=== PATIENT | male | born 1945 | race Caucasian/White ===

== ENCOUNTER 2016-04-06 13:18 | Outpatient (CLI) | payer MEDICARE | END 2016-04-06 13:19 | disposition home or self-care (01) | DX: E11.65 Type 2 diabetes mellitus with hyperglycemia (principal) ==

== ENCOUNTER 2016-04-26 13:05 | Outpatient (CLI) | payer MEDICARE | END 2016-04-26 13:06 | disposition home or self-care (01) | DX: N50.0 Atrophy of testis (principal); N43.2 Other hydrocele; N50.89 Other specified disorders of the male genital organs ==

== ENCOUNTER 2016-08-03 14:42 | Outpatient (CLI) | payer MEDICARE | END 2016-08-03 14:43 | disposition home or self-care (01) | DX: R26.9 Unspecified abnormalities of gait and mobility (principal); N40.1 Benign prostatic hyperplasia with lower urinary tract symptoms; E78.5 Hyperlipidemia, unspecified; E11.65 Type 2 diabetes mellitus with hyperglycemia; I10 Essential (primary) hypertension ==

== ENCOUNTER 2016-11-02 14:10 | Outpatient (CLI) | payer MEDICARE ==
[2016-11-02 18:06] LABS: HEMOGLOBIN A1C 2.02 g/dL
== END 2016-11-02 14:11 | disposition home or self-care (01) ==
LOC: LAB.F 14:10
PROVIDERS: ATTEND Internal Medicine
DX: E11.40 Type 2 diabetes mellitus with diabetic neuropathy, unspecified (principal)
CPT/HCPCS: 36415; 83036

== ENCOUNTER 2016-12-08 12:49 | Outpatient (CLI) | payer MEDICARE ==
[2016-12-08 18:31] LABS: HEMOGLOBIN A1C 2.23 g/dL
== END 2016-12-08 12:50 | disposition home or self-care (01) ==
LOC: LAB.F 12:49
PROVIDERS: ATTEND Internal Medicine
DX: R26.9 Unspecified abnormalities of gait and mobility (principal); N40.1 Benign prostatic hyperplasia with lower urinary tract symptoms; E78.5 Hyperlipidemia, unspecified; E11.65 Type 2 diabetes mellitus with hyperglycemia; I10 Essential (primary) hypertension
CPT/HCPCS: 36415; 83036

== ENCOUNTER 2017-01-12 07:10 | Outpatient (CLI) | payer MEDICARE ==
[2017-01-12 12:37] LABS: BUN - BLOOD UREA NITROGEN 20 mg/dL (6-20); CALCIUM 8.6 mg/dL (8.5-10.3); CARBON DIOXIDE - CO2 19 mmol/L (21-32); CHLORIDE 104 mmol/L (101-111); CHOL/HDL RATIO 7.7 (<5.0); CHOLESTEROL 162 mg/dL; CREATININE 0.9 mg/dL (0.6-1.2); GFR - MDRD 84 (>89); GLUCOSE 380 mg/dL (70-100); HDL CHOLESTEROL 21 mg/dL; POTASSIUM 4.1 mmol/L (3.5-5.0); SODIUM 134 mmol/L (135-145); TRIGLYCERIDES 569 mg/dL
[2017-01-12 12:57] LABS: HEMOGLOBIN A1C 1.92 g/dL
[2017-01-12 13:26] LABS: LDL CHOLESTEROL,DIRECT 58 mg/dL
== END 2017-01-12 07:11 | disposition home or self-care (01) ==
LOC: LAB.F 07:10
PROVIDERS: ATTEND Internal Medicine
DX: R26.9 Unspecified abnormalities of gait and mobility (principal); N40.1 Benign prostatic hyperplasia with lower urinary tract symptoms; E78.5 Hyperlipidemia, unspecified; E11.65 Type 2 diabetes mellitus with hyperglycemia; I10 Essential (primary) hypertension
CPT/HCPCS: 36415; 80048; 80061; 82043; 82570; 83036

== ENCOUNTER 2017-02-22 08:00 | Outpatient (CLI) | payer MEDICARE ==
[2017-02-22 18:12] LABS: HEMOGLOBIN A1C 1.99 g/dL
== END 2017-02-22 08:01 | disposition home or self-care (01) ==
LOC: LAB.F 08:00
PROVIDERS: ATTEND Internal Medicine
DX: Z00.00 Encounter for general adult medical examination without abnormal findings (principal); R26.9 Unspecified abnormalities of gait and mobility; N40.1 Benign prostatic hyperplasia with lower urinary tract symptoms; E78.5 Hyperlipidemia, unspecified; E11.65 Type 2 diabetes mellitus with hyperglycemia; I10 Essential (primary) hypertension; Z11.59 Encounter for screening for other viral diseases
CPT/HCPCS: 36415; 83036; 86803

== ENCOUNTER 2017-04-13 13:19 | Outpatient (CLI) | payer MEDICARE ==
[2017-04-13 18:11] LABS: HB2 TOTAL 16.5 g/dL; HEMOGLOBIN A1C 1.85 g/dL; HEMOGLOBIN A1C % 12.4 % (4.6-6.2)
== END 2017-04-13 13:20 | disposition home or self-care (01) ==
LOC: LAB.F 13:19
PROVIDERS: ATTEND Internal Medicine
DX: R26.9 Unspecified abnormalities of gait and mobility (principal); N40.1 Benign prostatic hyperplasia with lower urinary tract symptoms; E78.5 Hyperlipidemia, unspecified; R25.1 Tremor, unspecified; E11.65 Type 2 diabetes mellitus with hyperglycemia; I10 Essential (primary) hypertension
CPT/HCPCS: 36415; 83036

== ENCOUNTER 2017-08-22 14:21 | Outpatient (CLI) | payer MEDICARE ==
[2017-08-22 20:03] LABS: HB2 TOTAL 17.4 g/dL; HEMOGLOBIN A1C 2.36 g/dL; HEMOGLOBIN A1C % 14.6 % (4.6-6.2)
== END 2017-08-22 14:22 | disposition home or self-care (01) ==
LOC: LAB.F 14:21
PROVIDERS: ATTEND Internal Medicine
DX: E78.5 Hyperlipidemia, unspecified (principal); E11.65 Type 2 diabetes mellitus with hyperglycemia; I10 Essential (primary) hypertension
CPT/HCPCS: 36415; 83036

== ENCOUNTER 2017-10-11 08:59 | Outpatient (CLI) | payer MEDICARE ==
[2017-10-11 17:59] LABS: HB2 TOTAL 16.1 g/dL; HEMOGLOBIN A1C 1.91 g/dL
== END 2017-10-11 09:00 | disposition home or self-care (01) ==
LOC: LAB.F 08:59
PROVIDERS: ATTEND Internal Medicine
DX: E78.5 Hyperlipidemia, unspecified (principal); E11.65 Type 2 diabetes mellitus with hyperglycemia; I10 Essential (primary) hypertension
CPT/HCPCS: 36415; 83036

== ENCOUNTER 2017-10-13 14:14 | Outpatient (CLI) | payer MEDICARE | END 2017-10-13 14:15 | disposition home or self-care (01) | LOC: LAB.F 14:14 | PROVIDERS: ATTEND Internal Medicine | DX: R26.9 Unspecified abnormalities of gait and mobility (principal); E78.5 Hyperlipidemia, unspecified; E11.65 Type 2 diabetes mellitus with hyperglycemia; I10 Essential (primary) hypertension; R35.0 Frequency of micturition | CPT/HCPCS: 81003; 87086 ==

== ENCOUNTER 2017-10-14 13:13 | Outpatient (CLI) | payer MEDICARE ==
[2017-10-14 17:35] LABS: BILIRUBIN,URINE NEGATIVE (NEGATIVE); GLUCOSE, URINE (UA) >=1000 mg/dL (NEGATIVE); KETONES,URINE (UA) 15 mg/dL (NEGATIVE); LEUKOCYTE ESTERASE, URINE NEGATIVE (NEGATIVE); NITRITE,URINE NEGATIVE (NEGATIVE); OCCULT BLOOD,URINE NEGATIVE (NEGATIVE); PH,URINE 5.5 PH (5.0-7.5); PROTEIN,URINE NEGATIVE (NEGATIVE); UROBILINOGEN,URINE 1 (NORMAL) E.U./dL (NORMAL)
[2017-10-14 17:37] LABS: CLARITY,URINE CLEAR (CLEAR)
== END 2017-10-14 13:14 | disposition home or self-care (01) ==
LOC: LAB.R 13:13
PROVIDERS: ATTEND Internal Medicine
DX: R26.9 Unspecified abnormalities of gait and mobility (principal); E78.5 Hyperlipidemia, unspecified; E11.65 Type 2 diabetes mellitus with hyperglycemia; I10 Essential (primary) hypertension; R35.0 Frequency of micturition
CPT/HCPCS: 81001; 81003; 87086

== ENCOUNTER 2017-12-27 08:40 | Outpatient (CLI) | payer MEDICARE ==
[2017-12-27 11:00] LABS: CREATININE,URINE 88.3 mg/dL; MICROALBUM/CREATININE RATIO,UR 20.4 ug/mg (<30.0); MICROALBUMIN,URINE 1.8 mg/dL (0-300.0)
[2017-12-27 11:02] LABS: BILIRUBIN,URINE NEGATIVE (NEGATIVE); GLUCOSE, URINE (UA) >=1000 mg/dL (NEGATIVE); KETONES,URINE (UA) NEGATIVE (NEGATIVE); LEUKOCYTE ESTERASE, URINE NEGATIVE (NEGATIVE); NITRITE,URINE NEGATIVE (NEGATIVE); OCCULT BLOOD,URINE NEGATIVE (NEGATIVE); PROTEIN,URINE NEGATIVE (NEGATIVE); UROBILINOGEN,URINE 0.2 (NORMAL) E.U./dL (NORMAL)
[2017-12-27 11:08] LABS: CLARITY,URINE CLEAR (CLEAR)
[2017-12-27 11:15] LABS: BUN - BLOOD UREA NITROGEN 30 mg/dL (6-20); CARBON DIOXIDE - CO2 23 mmol/L (21-32); CHLORIDE 106 mmol/L (101-111); CHOL/HDL RATIO 4.1 (<5.0); CHOLESTEROL 182 mg/dL; CREATININE 0.8 mg/dL (0.6-1.2); GFR - MDRD 96 (>89); GLUCOSE 304 mg/dL (70-100); HDL CHOLESTEROL 44 mg/dL; LDL CHOLESTEROL,CALCULATED 102 mg/dL; LDL/HDL RATIO 2.3 (<3.6); SODIUM 137 mmol/L (135-145); VLDL CHOLESTEROL 36 mg/dL
[2017-12-27 11:18] LABS: HB2 TOTAL 15.8 g/dL; HEMOGLOBIN A1C 1.19 g/dL
== END 2017-12-27 08:41 | disposition home or self-care (01) ==
LOC: LAB.F 08:40
PROVIDERS: ATTEND Internal Medicine
DX: R26.9 Unspecified abnormalities of gait and mobility (principal); E78.5 Hyperlipidemia, unspecified; E11.65 Type 2 diabetes mellitus with hyperglycemia; I10 Essential (primary) hypertension; R35.0 Frequency of micturition
CPT/HCPCS: 36415; 80048; 80061; 81001; 81003; 82043; 82570; 83036; 83721; 87086

== ENCOUNTER 2018-04-04 08:00 | Outpatient (CLI) | payer MEDICARE ==
[2018-04-04 17:38] LABS: HB2 TOTAL 17.2 g/dL; HEMOGLOBIN A1C 1.22 g/dL; HEMOGLOBIN A1C % 8.6 % (4.6-6.2)
== END 2018-04-04 23:59 | disposition home or self-care (01) ==
LOC: LAB.F 08:00
PROVIDERS: ATTEND Internal Medicine
DX: E11.65 Type 2 diabetes mellitus with hyperglycemia (principal)
CPT/HCPCS: 36415; 83036

== ENCOUNTER 2018-04-22 08:11 | Outpatient (CLI) | payer MEDICARE | END 2018-04-22 08:12 | disposition EMS.NT | LOC: EMS 08:11 | PROVIDERS: ATTEND Surgery | DX: R41.0 Disorientation, unspecified (principal); R53.1 Weakness; W18.30XA Fall on same level, unspecified, initial encounter; Y92.039 Unspecified place in apartment as the place of occurrence of the external cause; Z86.73 Personal history of transient ischemic attack (TIA), and cerebral infarction without residual deficits ==

== ENCOUNTER 2018-07-20 13:42 | Outpatient (CLI) | payer MEDICARE ==
[2018-07-20 17:33] LABS: HB2 TOTAL 17.3 g/dL; HEMOGLOBIN A1C 1.27 g/dL; HEMOGLOBIN A1C % 8.9 % (4.6-6.2)
== END 2018-07-20 13:43 | disposition home or self-care (01) ==
LOC: LAB.F 13:42
PROVIDERS: ATTEND Internal Medicine
DX: E78.5 Hyperlipidemia, unspecified (principal); L44.8 Other specified papulosquamous disorders; I10 Essential (primary) hypertension; E11.8 Type 2 diabetes mellitus with unspecified complications
CPT/HCPCS: 36415; 83036

== ENCOUNTER 2018-11-08 15:56 | Outpatient (CLI) | payer MEDICARE ==
[2018-11-08 18:28] LABS: HB2 TOTAL 15.1 g/dL; HEMOGLOBIN A1C 1.83 g/dL; HEMOGLOBIN A1C % 13.2 % (4.6-6.2)
== END 2018-11-08 15:57 | disposition home or self-care (01) ==
LOC: LAB.S 15:56
PROVIDERS: ATTEND Internal Medicine
DX: E78.5 Hyperlipidemia, unspecified (principal); L44.8 Other specified papulosquamous disorders; E11.65 Type 2 diabetes mellitus with hyperglycemia; I10 Essential (primary) hypertension
CPT/HCPCS: 36415; 83036

== ENCOUNTER 2018-12-25 14:37 | Outpatient (CLI) | payer MEDICARE ==
[2018-12-25 18:06] LABS: CREATININE,URINE 65.1 mg/dL; MICROALBUM/CREATININE RATIO,UR 52.2 ug/mg (<30.0); MICROALBUMIN,URINE 3.4 mg/dL (0-300.0)
[2018-12-25 18:08] LABS: BUN - BLOOD UREA NITROGEN 19 mg/dL (6-20); CALCIUM 8.9 mg/dL (8.5-10.3); CARBON DIOXIDE - CO2 24 mmol/L (21-32); CHLORIDE 100 mmol/L (101-111); CHOLESTEROL 185 mg/dL; CREATININE 1.1 mg/dL (0.6-1.2); GFR - MDRD 66 (>89); GLUCOSE 464 mg/dL (70-100); HDL CHOLESTEROL 31 mg/dL; LDL CHOLESTEROL,CALCULATED 102 mg/dL; LDL/HDL RATIO 3.3 (<3.6); SODIUM 135 mmol/L (135-145); VLDL CHOLESTEROL 52 mg/dL
[2018-12-25 19:35] LABS: HB2 TOTAL 14.8 g/dL; HEMOGLOBIN A1C 1.76 g/dL
== END 2018-12-25 14:38 | disposition home or self-care (01) ==
LOC: LAB.S 14:37
PROVIDERS: ATTEND Internal Medicine
DX: Z00.00 Encounter for general adult medical examination without abnormal findings (principal); E78.5 Hyperlipidemia, unspecified; L44.8 Other specified papulosquamous disorders; I10 Essential (primary) hypertension; R26.81 Unsteadiness on feet; E11.8 Type 2 diabetes mellitus with unspecified complications
CPT/HCPCS: 36415; 80048; 80061; 82043; 82570; 83036; 83721

== ENCOUNTER 2019-03-01 12:28 | Outpatient (CLI) | payer MEDICARE | END 2019-03-01 12:29 | disposition critical access hospital (66) | LOC: EMS 12:28 | PROVIDERS: ATTEND Surgery | DX: R53.1 Weakness (principal); R05 Cough; M79.89 Other specified soft tissue disorders; R26.2 Difficulty in walking, not elsewhere classified | CPT/HCPCS: A0425; A0429 ==

== ENCOUNTER 2019-03-01 13:05 | Emergency (ER) | payer MEDICARE ==
[2019-03-01] MEDS ORDERED: VANCOMYCIN INJ 2 GM in SODIUM CHLORIDE 0.9% 500 ML IV STA (13:12)
[2019-03-01] MEDS ORDERED: PIPERACILLIN/TAZOBACTAM 3.375 GM in SODIUM CHLORIDE 0.9% MINIBAG 100 ML IV STA (13:12)
--- NOTE | 2019-03-01 13:16 | ED Physician Documentation ---
PD HPI LOWER EXT INJURY - Stated complaint Stated Complaint: WEAKNESS - History obtained from History obtained from: Patient - History of Present Illness PD HPI LOW EXT INJURY LOCATION: Right (74-year-old gentleman with neuropathy and uncontrolled diabetes presents by ambulance today. He has had an ongoing foot infection since a minor injury about 2 weeks ago. Remotely he already had the first and second toes of the right foot amputated. He denies any history of vascular issues. He denies fevers or chills but is weak, presumably because of the infection and cannot ambulate independently now.) Review of Systems Ten Systems: 10 systems reviewed and negative Constitutional: denies: Fever, Chills Cardiac: denies: Chest pain / pressure, Palpitations Respiratory: denies: Dyspnea, Cough PD PAST MEDICAL HISTORY - Past Medical History Cardiovascular: Hypertension, Arrhythmia Respiratory: None Endocrine/Autoimmune: Type 2 diabetes GI: None : Retention HEENT: Macular degeneration Psych: None Musculoskeletal: None Derm: Psoriasis - Past Surgical History General: Colonoscopy Ortho: Spine surgery, Amputation HEENT: Tonsil/Adenoidectomy - Present Medications Home Medications: Ambulatory Orders Medication Instructions Recorded Confirmed metFORMIN [Glucophage] 1,000 mg PO BIDWM 09/07/12 02/14/18 Atorvastatin [Lipitor] 80 mg PO DAILY 11/26/13 02/14/18 Multivitamin [Once Daily] 1 each PO DAILY 07/17/14 02/14/18 Tamsulosin [Flomax] 0.4 mg PO QPM 07/17/14 02/14/18 Cholecalciferol (Vitamin D3) 4,000 unit PO DAILY 01/22/15 02/14/18 [Vitamin D-3] Aspirin 81 mg PO DAILY 06/30/17 02/14/18 Insulin NPH Human Isophane 77 unit SUBQ BID 11/18/17 02/14/18 [Humulin N Kwikpen] - Allergies Allergies/Adverse Reactions: Allergies Allergy/AdvReac Type Severity Reaction Status Date / Time codeine AdvReac Intermediate Itching Verified 03/01/19 13:18 - Social History Does the pt smoke?: Yes Smoking Status: Former smoker Does the pt drink ETOH?: No Does the pt have substance abuse?: No - Family History Family history: reports: Non contributory - Immunizations Immunizations are current?: Yes PD ED PE NORMAL - Vitals Vital signs reviewed: Yes - General General: Alert and oriented X 3, Other (He is tremulous which he says is his baseline, no distress,) - HEENT HEENT: PERRL, EOMI - Neck Neck: Supple, no meningeal sign, No bony TTP - Cardiac Cardiac: RRR, No murmur - Respiratory Respiratory: No respiratory distress, Clear bilaterally - Abdomen Abdomen: Soft, Non tender - Extremities Extremities: Other (He is missing the first and second toes on the right foot, the third toe has dry gangrene but there is a foul smell and purulence around the base with cellulitis up to the midfoot. I do not appreciate a pulse in the foot, although his foot seems warm and well-perfused. He is insensate in the feet.) - Neuro Neuro: Alert and oriented X 3, Normal speech Results - Vitals Vitals: Vital Signs - 24 hr 03/01/19 13:12 Temperature 36.4 C L Heart Rate 95 Respiratory 17 Rate Blood Pressure 144/72 H O2 Saturation 99 Oxygen O2 Source Room air - Labs Labs: Laboratory Tests 03/01/19 03/01/19 03/01/19 13:20 13:20 13:20 WBC 7.8 RBC 4.23 L Hgb 13.0 L Hct 37.5 L MCV 88.7 MCH 30.7 MCHC 34.7 RDW 12.7 Plt Count 213 MPV 8.8 Neut # (Auto) 5.9 Lymph # (Auto) 1.0 L Randolph # (Auto) 0.7 Eos # (Auto) 0.1 Baso # (Auto) 0.1 Absolute Nucleated RBC 0.00 Nucleated RBC % 0.0 ESR 58 H Sodium 134 L Potassium 3.9 Chloride 96 L Carbon Dioxide 25 Anion Gap 13.0 BUN 11 Creatinine 0.6 Estimated GFR (MDRD) 132 Glucose 437 H Lactic Acid Calcium 8.4 L Total Bilirubin 1.4 H AST 25 ALT 31 Alkaline Phosphatase 157 H C-Reactive Protein 13.4 H Total Protein 6.8 Albumin 3.0 L Globulin 3.8 Albumin/Globulin Ratio 0.8 L Lipase 20 L 03/01/19 13:20 WBC RBC Hgb Hct MCV MCH MCHC RDW Plt Count MPV Neut # (Auto) Lymph # (Auto) Randolph # (Auto) Eos # (Auto) Baso # (Auto) Absolute Nucleated RBC Nucleated RBC % ESR Sodium Potassium Chloride Carbon Dioxide Anion Gap BUN Creatinine Estimated GFR (MDRD) Glucose Lactic Acid 1.4 Calcium Total Bilirubin AST ALT Alkaline Phosphatase C-Reactive Protein Total Protein Albumin Globulin Albumin/Globulin Ratio Lipase - Rads (name of study) CTA Lower ext Radiology: EMP read contemporaneously (Note that I had initially ordered ABIs, but the radiologist came and talk to me and said this was a border better test. Impression moderate bilateral popliteal artery disease right worse than left, extensive right distal disease with one-vessel runoff in the right lower extremity, the peroneal branch. Focally prominent stenosis of the proximal peroneal artery is seen. Extensive left distal disease with three-vessel runoff in the left lower extremity.) PD MEDICAL DECISION MAKING - ED course ED course: 74-year-old gentleman with diabetic foot infection with gangrene of the third toe, cellulitis up to the midfoot. He does not appear in extremis. No white count but sed rate and CRP are modestly elevated. CT angios of the lower extremities as shown and may need some vascular work prior to or concordant with an amputation. Made arrangements with Dr. Epifanio Mccollum there and is accepted by Dr. Bairon Buck ([place] to [facility] at 4:30 PM and cobras were completed. He had received Zosyn and vancomycin after blood cultures. He is stable for transport to a higher level of care. Departure - Departure Disposition: 02 Transfer Acute Care Hosp Clinical Impression: Gangrene associated with type 2 diabetes mellitus Cellulitis Qualifiers: Site of cellulitis: extremity Site of cellulitis of extremity: lower extremity Laterality: right Qualified Code(s): L03.115 - Cellulitis of right lower limb Condition: Stable
[2019-03-01 13:31] LABS: BASOPHILS # (AUTO) 0.1 10^3/uL (0.0-0.1); BASOPHILS % (AUTO) 0.8 %; EOSINOPHILS # (AUTO) 0.1 10^3/uL (0.0-0.7); EOSINOPHILS % (AUTO) 0.6 %; LYMPHOCYTES % (AUTO) 13.2 %; MEAN CORPUSCULAR HEMOGLOBIN 30.7 pg (27.0-31.0); MEAN CORPUSCULAR HGB CONC 34.7 g/dL (32.0-36.0); MEAN CORPUSCULAR VOLUME 88.7 fL (80.0-94.0); MEAN PLATELET VOLUME 8.8 fL (7.4-11.4); MONOCYTES # (AUTO) 0.7 10^3/uL (0.0-1.0); MONOCYTES % (AUTO) 9.3 %; NEUTROPHILS # (AUTO) 5.9 10^3/uL (1.5-6.6); NEUTROPHILS % (AUTO) 75.7 %; PLT - PLATELET COUNT 213 10^3/uL (130-450); RED BLOOD COUNT 4.23 10^6/uL (4.70-6.10); RED CELL DISTRIBUTION WIDTH 12.7 % (12.0-15.0); WHITE BLOOD COUNT 7.8 x10^3/uL (4.8-10.8)
[2019-03-01 13:50] LABS: ALBUMIN/GLOBULIN RATIO 0.8 (1.0-2.2); BILIRUBIN,TOTAL 1.4 mg/dL (0.2-1.0); CALCIUM 8.4 mg/dL (8.5-10.3); CREATININE 0.6 mg/dL (0.6-1.2); CRP - C-REACTIVE PROTEIN 13.4 mg/dL (0-1.0); TOTAL PROTEIN 6.8 g/dL (6.7-8.2)
[2019-03-01] MEDS ORDERED: SODIUM CHLORIDE 0.9% 1,000 ML IV ONE (13:52)
[2019-03-01] MEDS ORDERED: INSULIN REGULAR HUMAN 100 UNIT/1 ML 10 ML MDV IVP STA (13:52)
[2019-03-01] MEDS ORDERED: INSULIN ASPART 100 UNIT/1 ML 10 ML MDV SUBQ STA (13:53)
--- NOTE | 2019-03-01 13:55 | XRAY Report ---
Reason: infection, gangrene 3rd toe Procedure Date: 03/01/2019 Accession Number: [id number] / [id number] Procedure: XR - Foot 3 View RT CPT Code: Final Report FULL RESULT: EXAM: RIGHT FOOT RADIOGRAPHY EXAM DATE: 03/01/2019 01:37 PM. CLINICAL HISTORY: Infection, gangrene third toe. COMPARISON: FOOT 3 VIEW BILAT 11/05/2014 6:45 PM. TECHNIQUE: 3 views. FINDINGS: Bones: First ray transmetatarsal amputation and interval amputation of the second toe. No definite destructive changes in the third toe. Joints: Normal. No subluxations. Soft Tissues: No soft tissue gas or foreign bodies detected. Prominent vascular calcifications. IMPRESSION: No radiographic evidence of osteomyelitis in the reportedly gangrenous third toe. RADIA
[2019-03-01] MEDS ORDERED: IOVERSOL 320 100 ML VIAL IVP ONE ×2 (14:19→17:03)
--- NOTE | 2019-03-01 15:45 | CT Report ---
Reason: RLE gangrene Procedure Date: 03/01/2019 Accession Number: [id number] / [id number] Procedure: CT - ANGIO ABD RUNOFF W/WO - B/L CPT Code: Addended Final Report FULL RESULT: EXAM: CT ANGIOGRAM ABDOMEN AND PELVIS, WITH BILATERAL LOWER EXTREMITY ARTERY RUNOFF EXAM DATE: 03/01/2019 03:04 PM CLINICAL HISTORY: Right foot gangrene. COMPARISON: None. TECHNIQUE: Routine helical imaging was performed through the abdomen, pelvis and bilateral lower extremities in arterial phase. IV Contrast: 125 mL Optiray 320. Reconstructions: Coronal, sagittal, and 3D MIP reconstructions were performed. In accordance with CT protocol optimization, one or more of the following dose reduction techniques were utilized for this exam: automated exposure control, adjustment of mA and/or KV based on patient size, or use of iterative reconstructive technique. FINDINGS: Vascular: Normal caliber aorta demonstrates moderate calcified atherosclerotic disease with no acute aortic pathology. The mesenteric and renal artery vasculature remains relatively patent. 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 Iliac arteries demonstrate mild to moderate calcified atherosclerotic disease without aneurysm or stenosis. Internal iliac arteries are patent. Right lower extremity demonstrates moderate calcified atherosclerotic disease in the right common femoral artery without stenosis. There is moderate predominantly calcified disease in the right lower extremity. The superficial femoral and profunda wrenches are relatively patent. There is moderate stenosis in the proximal popliteal artery. There is moderate stenosis in the mid popliteal artery. The distal popliteal artery is relatively patent. There is extensive distal disease with predominantly one-vessel runoff distally via the peroneal branch. The peroneal branch demonstrates high-grade stenosis proximally (image 32/9). Left lower extremity demonstrates no significant disease or stenosis in the common femoral artery. Moderate diffuse scattered calcified disease is seen in the SFA without significant stenosis. The profunda branches relatively patent. There is moderate disease and stenosis in the mid popliteal artery (image 440/6). There is extensive distal disease with three-vessel runoff below the ankle. Abdomen: Arterial phase imaging of the abdominal organs demonstrates no acute findings. Calcified granuloma in the posterior right hepatic lobe and small cyst in the upper pole left kidney is seen. No hydronephrosis. Bowel loops appear intact with no obstruction or ileus. Pelvis: Pelvic organs, bowel, and bladder unremarkable for arterial phase enhancement. Pelvic contents otherwise normal. Extremities: Lower extremity structures are notable for partial amputation changes of the right foot at the mid first metatarsal and second MTP level. Diffuse degenerative changes are seen in the ankles, knees, and hips. IMPRESSION: 1. Relatively patent iliac and femoral arterial vasculature. Moderate bilateral popliteal artery disease, right side worse than left side. 2. Extensive right distal disease with one-vessel runoff in the right lower extremity the peroneal branch. Focally prominent stenosis of the proximal peroneal artery is seen. 3. Extensive left distal disease with three-vessel runoff in the left lower extremity. 4. No significant stenosis of the aorta, iliac, or femoral vasculature. ADDENDUM: 03/01/19 15:53 Of note, tiny focus of air is seen along the plantar aspect of the right midfoot. There is no significant surrounding inflammatory changes to suggest cellulitis in the midfoot structures. No fluid collection to suggest abscess.
[2019-03-01 19:25] VITALS: BP 107/74
== END 2019-03-01 19:47 | disposition short-term general hospital (02) ==
LOC: EDUNIT# → ED 13:05
DX: E11.52 Type 2 diabetes mellitus with diabetic peripheral angiopathy with gangrene (principal); L03.115 Cellulitis of right lower limb; Z79.4 Long term (current) use of insulin; Z89.411 Acquired absence of right great toe; Z89.421 Acquired absence of other right toe(s); Z87.891 Personal history of nicotine dependence
CPT/HCPCS: 36415; 73630; 75635; 80053; 83605; 83690; 85025; 85651; 86140; 87040; 96365; 96366; 96367; 99283; 99284; A9270; J1815; J3370; Q9967